=== PATIENT | male | born 1965 | race Caucasian/White ===

== ENCOUNTER → 2023-07-21 08:44 | Outpatient (REF) | payer BC, SELFPAY | LOC: HWRAD 08:44 | PROVIDERS: ATTENDING PHYSICIAN Nurse Practitioner Adult Health; FAMILY PHYSICIAN Family Medicine | DX: R91.8 Other nonspecific abnormal finding of lung field (principal) | CPT/HCPCS: 71250 ==

== ENCOUNTER → 2024-07-24 08:10 | Outpatient (REF) | payer BC, SELFPAY | LOC: HWRAD 08:10 | PROVIDERS: ATTENDING PHYSICIAN Internal Medicine Critical Care Medicine; FAMILY PHYSICIAN Family Medicine | DX: F17.210 Nicotine dependence, cigarettes, uncomplicated (principal) | CPT/HCPCS: 71271 ==

== ENCOUNTER 2025-05-30 18:18 | Emergency (ER) | payer BC, SELFPAY ==
[2025-05-30 18:20] VITALS: BP 133/81
[2025-05-30 18:47] LABS: INR 1.05; PT 13.5 Sec (11.4-14.6)
[2025-05-30 18:48] LABS: APTT 28.3 Sec (23.4-35.0); Hematocrit 46.4 % (39.0-52.0); Hemoglobin 15.4 g/dL (13.0-18.0); Mean Corp Hgb Conc. 33.2 g/dL (33.0-37.0); Mean Corpuscular Volume 92.4 fL (80.0-94.0); Platelet Count 233 10^3/uL (130-400); Red Cell Dist. Width 13.9 % (11.5-14.5)
[2025-05-30 18:51] LABS: ALT (SGPT) 35 U/L (0-50); AST (SGOT) 30 U/L (17-59); Albumin 4.0 g/dl (3.5-5.0); Alkaline Phosphatase 105 U/L (38-126); Blood Urea Nitrogen 15 mg/dl (9-20); Calcium 8.8 mg/dl (8.4-10.2); Carbon Dioxide 20 mmol/L (22-30); Chloride 103 mmol/L (98-107); Glucose 151 mg/dl (70-99); Potassium 4.5 mmol/L (3.5-5.1); Sodium 132 mmol/L (135-145); Total Protein 7.3 g/dl (6.3-8.2); eGFR > 60.00
[2025-05-30 19:57] LABS: Absolute Neutrophils -Man Diff 5.4 10^3/uL (1.4-6.5)
[2025-05-30 19:58] LABS: Normal RBC Morphology Yes; Platelets Checked Yes; Total Cells Counted 100
--- NOTE | 2025-05-30 20:06 | ED.GENMED ---
History of Present Illness
General
Chief Complaint: Nose Bleed
Time Seen by Provider: 05/30/25 20:06
History of Present Illness
History of Present Illness:
FOCUSED PAST MEDICAL HISTORY
- Asthma, COPD, anxiety
REVIEW OF OLD RECORDS
- I reviewed records, the patient was admitted here with diverticulitis in 2022
Note:
CHIEF COMPLAINT(S)
Recurrent epistaxis (nosebleeds) for the past three days.
HISTORY OF PRESENT ILLNESS
The patient is a 59-year-old male with recurrent episodes of epistaxis over the last three days. The patient reports using Continuous Positive Airway Pressure therapy (CPAP) with a humidifier at home. He denies any chronic oxygen use during the day.
The patient currently takes Clopidogrel (Plavix) and Aspirin. He noted an episode of flu-like symptoms recently that tested negative for influenza. The episodes of nosebleeds occur predominantly at night and have happened multiple times in a single
night, sometimes resembling clots, which he describes as 'like delivering a baby.' The patient reports saline spray is used at home, starting after the first two days of symptoms.
During the clinical visit, treatment involved the application of epinephrine to the nostril to constrict blood vessels and potentially stop the bleeding. Its noted that the bleeding seemed to be from the left anterior nasal septum, and a silver
nitrate cautery stick was used to cauterize fresh-appearing blood vessels. The patient was instructed to apply pressure to the nose from the outside for additional compression, particularly on the proximal aspect of the nasal septum.
CHRONIC MEDICAL CONDITIONS SIGNIFICANTLY AFFECTING CARE
The patient is on Clopidogrel (Plavix) and Aspirin, indicating a history of cardiovascular conditions, possibly prior strokes or cardiovascular risk, significantly impacting his current episodes of epistaxis.
PHYSICAL EXAM
General: Alert, no acute distress.
Skin: Warm, dry.
Head: Normocephalic, atraumatic.
Neck: Supple, trachea midline.
Eyes, Ears, Nose, Mouth, and Throat: Oral mucosa moist. Fresh bleeding noted from the left anterior nasal septum.
Cardiovascular: Normal peripheral perfusion, no edema.
Respiratory: Respirations are non-labored.
Gastrointestinal: Abdomen nondistended.
Back: Normal range of motion, normal alignment.
Musculoskeletal: Normal range of motion, normal strength.
Neurological: Alert and oriented to person, place, time, and situation, no focal neurological deficit observed.
Psychiatric: Cooperative, appropriate mood & affect.
PROBLEM LIST
Acute:
- Recurrent epistaxis.
Chronic:
- Possible cardiovascular condition indicated by the use of Clopidogrel (Plavix) and Aspirin.
PLAN
1. Applied epinephrine to the nasal cavity to constrict blood vessels and potentially halt the bleeding.
2. Cauterized the fresh-appearing vessel in the left anterior nasal septum with a silver nitrate stick.
3. Advised the patient to apply external pressure for nasal compression at anterosuperior nasal septum.
4. Will monitor after a brief period to reassess the situation and ensure hemostasis.
DIFFERENTIAL DIAGNOSIS
The Differential Diagnosis includes, in no particular order and is not limited to:
1. Nasal trauma
2. Hypertension
3. Coagulopathy
4. Nasal dryness or irritation
5. Nasal polyps
6. Septal deviation
7. Environmental factors causing irritation
8. Inflammatory conditions such as vasculitis
9. Underlying neoplasia
10. Hereditary hemorrhagic telangiectasia (HHT)
SUMMARY OF ENCOUNTER
The patient, a 59-year-old male, was evaluated in the emergency department for recurrent epistaxis over the past three days. The patient has a history of using continuous positive airway pressure (CPAP) therapy with a humidifier, without daytime
oxygen use. The bleeding primarily occurs at night and has been described as significant, with some episodes resembling clots. During the encounter, epinephrine was applied to the left nostril to constrict blood vessels. On initial assessment, the
bleeding appeared to be towards the back of the left nostril. Reassessment revealed significant bleeding and a moderate-sized clot, which was removed. The patients bleeding appeared to subside without the need for nasal packing immediately, though
this remained a consideration if the bleeding were to resume significantly.
ASSESSMENT
Recurrent epistaxis, likely exacerbated by the patients anticoagulant medications, nasal dryness or irritation related to CPAP therapy, or potential underlying vascular abnormalities.
PLAN
1. Continue monitoring for additional bleeding.
2. Consider nasal packing if severe bleeding resumes.
3. Advise continued use of saline nasal spray at home.
4. Re-evaluation to check for bleeding recurrence or packing necessity.
REASSESSMENT
On reassessment, there was more significant bleeding at the left nostril and a moderate-sized clot was removed. The patient currently has no active bleeding following the removal of epinephrine-soaked cotton.
FOLLOW-UP INSTRUCTIONS
Please follow up with primary care for further evaluation and management of recurrent epistaxis and potential modification of anticoagulation therapy if necessary.
MEDICATION RECONCILIATION
1. Epinephrine was applied to the nasal cavity in the emergency department for vasoconstriction.
MEDICAL DECISION MAKING
-Complexity of Data Reviewed: Chronic conditions affecting care include possible cardiovascular condition indicated by the use of Clopidogrel (Plavix) and aspirin. Differential diagnosis considers nasal trauma, hypertension, coagulopathy, nasal
dryness or irritation, nasal polyps, septal deviation, environmental factors causing irritation, inflammatory conditions such as vasculitis, underlying neoplasia, and hereditary hemorrhagic telangiectasia (HHT).
-Data:
Category 1: The decision to potentially apply nasal packing was considered if active bleeding persisted, which was not chosen as bleeding appeared to have subsided after epinephrine application.
Category 2: No imaging or laboratory data was independently reviewed in this encounter.
-Risk:
Prescription drug management involves the use of Clopidogrel and aspirin, which increases bleeding risk. Consideration of admission/observation was discussed but not acted upon, as outpatient management was deemed safe with reassurance from current
blood control and patients condition.
DIAGNOSIS
1. Recurrent epistaxis (ICD-10: R04.0)
LABS
- CBC unremarkable with mild leukocytopenia, sodium 132, glucose 151
UPDATE
- Patient had bleeding after epinephrine soaked cotton and silver nitrate cauterization
- Additional moderate size clots removed
- Observe for a longer period of time in the ED and there has been no further bleeding
- To follow-up with Dr. Whelan
- Of note, patient is on aspirin and Plavix
Past History
Past History
ED Past Medical History: Arrthythmia (PVC's), Asthma, GERD, HTN, Hypercholesterolemia, NIDDM and Other (PAD, DIVERTICULITIS, gout)
ED Past Surgical History: Appendectomy and Other (Stents both legs)
Social History
Tobacco: Smoker
Alcohol: Occasional
Drug: None
Personal:
Living: with family
Employment: Employed
Family History
Family History: Other (Noncontributory)
Phy Exam
Physical Exam
Physical Exam:
See HPI
Course
Orders/Labs/Results
Orders:
Orders
05/30/25 18:27
Complete Blood Count/With Diff Urgent
Comprehensive Metabolic Panel Urgent
Manual Differential Urgent
PT/INR [Prothrombin Time] Urgent
Is patient on Coumadin/Warfarin?: No
Comment: [email or web address]
PTT Urgent
Abnormal Lab Results
05/30/25
18:27
Lymphocytes (Manual) 15 L %
(20-51)
Monocytes (Manual) 10 H %
(2-9)
Sodium 132 L mmol/L
(135-145)
Carbon Dioxide 20 L mmol/L
(22-30)
Glucose 151 H mg/dl
(70-99)
05/30/25 18:27
05/30/25 18:27
Vital Signs
Initial and Last Documented VS:
Initial Vital Signs
Temp Pulse Resp BP Pulse Ox
36.8 C 79 18 133/81 96
05/30/25 18:20 05/30/25 18:20 05/30/25 18:20 05/30/25 18:20 05/30/25 18:20
Last Documented Vital Signs
Temp Pulse Resp BP Pulse Ox
36.8 C 69 18 119/82 96
05/30/25 18:20 05/30/25 22:07 05/30/25 22:07 05/30/25 22:07 05/30/25 22:07
Procedures
Nosebleed
Drug treatment: Epinephrine
Treatment: Silver nitrate cautery
Additional information:
Bled initially after initial treatment but then after additional epinephrine and pressure significantly improved
*Pulse Oximetry
SaO2: 96
Oxygen Mode of Delivery: Room air
Patient hypoxic: no
*Critical Care Note
Total Time (30-74mins, 75-104mins- exclusive of procedures): Not Applicable
ED Attending Note
-
Portions of this chart may have been created with voice recognition software.� Occasional wrong word or��sound alike� substitutions may have occurred due to the inherent limitations of voice recognition software.
Discharge Plan
Departure
Patient Disposition: Home (Routine Discharge)
Date of Disposition: 05/30/25
Time of Disposition: 21:53
Patient with high blood pressure during this ER visit?: Yes
Discharge Problem:
Acute anterior epistaxis
Instructions: Nosebleeds (DC), BLOOD PRESSURE
Prescriptions:
No Action
aspirin 81 MG tablet,delayed release (DR/EC)
81 mg PO HS
cyanocobalamin (vitamin B-12) 1,000 MCG tablet
3,000 mcg PO DAILY
omega-3 acid ethyl esters [Lovaza] 1 GM capsule
2 gm PO BID
alprazolam 0.25 MG tablet
0.25 mg PO BIDPRN PRN (Reason: anxiety)
Patient Comments:
04/11/2023: LAST FILLED 10/08/22, 60 TABS FOR 30 DAYS FROM [facility]
ascorbic acid (vitamin C) [Vitamin C] 500 MG tablet
1,000 mg PO DAILY
albuterol sulfate 1 PUFF HFA aerosol inhaler
2 puff inhalation R Q4HPRN PRN (Reason: shortness of breath)
clopidogrel 75 MG tablet
75 mg PO HS
cholecalciferol (vitamin D3) [Vitamin D3] 50 mcg (2,000 unit) Tablet
50 mcg PO DAILY Qty: 0
olmesartan [Benicar] 40 mg Tablet
40 mg PO HS
fexofenadine 180 mg Tablet
180 mg PO HS
rosuvastatin 10 mg tablet
10 mg PO HS
Farxiga 10 mg tablet
10 mg PO HS
Trelegy Ellipta 100-62.5-25 mcg blister with device
1 inh INHALATION R HS
famotidine 20 mg Tablet
20 mg PO BID Qty: 60 1RF
levofloxacin 750 mg tablet
750 mg PO Q24H Qty: 8 0RF
metronidazole 500 mg tablet
500 mg PO Q8H Qty: 25 0RF
Referrals:
Nithya Reyes PA-C [Family Provider, Family Practice]
Robby Whelan MD [Active, Otology]
Activity Restrictions/Additional Instructions:
I placed epinephrine soaked cotton to constrict the blood vessels twice. I also cauterized with a silver nitrate stick. Since this has been ongoing over the last several days, I recommend you follow-up with ENT such as Dr. Whelan. Return if
worse or other concerns.
Interventions
Interventions:
*Risk Screen - Suicide Last Done: 05/30/25 18:23
*General Assessment Last Done: 05/30/25 20:27
*Neglect/Abuse Screening Last Done: 05/30/25 18:23
*ED COVID-19 Vaccine History Last Done: 05/30/25 20:27
*ED Influenza Vaccine History Last Done: 05/30/25 20:27
[facility] Risk Assessment Tool Last Done: 05/30/25 22:09
*Nursing Disposition Last Done: 05/30/25 22:07
ED-EENT Assessment Last Done: 05/30/25 20:27
Discharge Date and Time
Discharge Date/Time: 05/30/25 22:08
Print Language: TELUGU
[2025-05-30 20:27] VITALS: BMI 33.2
[2025-05-30 22:07] VITALS: BP 119/82
== END 2025-05-30 22:08 | disposition home or self-care (01) ==
LOC: EMR 18:18
PROVIDERS: Emergency Medicine; EMERGENCY PHYSICIAN Emergency Medicine; FAMILY PHYSICIAN Physician Assistant
DX: R04.0 Epistaxis (principal); E11.9 Type 2 diabetes mellitus without complications; E78.00 Pure hypercholesterolemia, unspecified; F17.200 Nicotine dependence, unspecified, uncomplicated; I10 Essential (primary) hypertension; J44.89 Other specified chronic obstructive pulmonary disease; I25.10 Atherosclerotic heart disease of native coronary artery without angina pectoris; Z79.02 Long term (current) use of antithrombotics/antiplatelets
CPT/HCPCS: 30901; 99283; 80053; 85025; 85610; 85730

== ENCOUNTER 2025-06-09 19:36 | Emergency (ER) | payer BC, SELFPAY ==
[2025-06-09 19:42] VITALS: BP 131/76
[2025-06-09 19:56] VITALS: BP 126/73
[2025-06-09 19:59] VITALS: BMI 33.9
[2025-06-09 20:00] VITALS: BP 143/76
--- NOTE | 2025-06-09 20:02 | ED.GENMED ---
History of Present Illness
General
Chief Complaint: Chest Pain
Time Seen by Provider: 06/09/25 19:56
Nursing documentation reviewed up to this point in time: agreed with
History of Present Illness
History of Present Illness:
59-year-old male presents the ER for evaluation of central chest burning which has been present since it awakened him at 3:00 this morning. Patient thought that he might be heartburn given he has significant heartburn symptoms daily. He took
omeprazole and tried to get back to sleep. Took another 1 at 1130. He states that the pain has been present all day, vacillating between a 4 and an 8 out of 10. He denies any associated shortness of breath. He denies any cough or cold symptoms.
He does see a nutrition services associate regularly due to history of arrhythmia many years ago-he denies any abnormal stress test or prior ACS. He denies any paresthesias to arms or legs. No syncope or trauma.
He does have a significant prior medical history including ongoing tobacco use, hypertension, hyperlipidemia, type 2 diabetes, COPD and GERD.
Past History
Past History
ED Past Medical History: Arrthythmia (PVC's), Asthma, GERD, HTN, Hypercholesterolemia, NIDDM and Other (PAD, DIVERTICULITIS, gout)
ED Past Surgical History: Appendectomy and Other (Stents both legs)
Social History
Tobacco: Smoker
Alcohol: Occasional
Drug: None
Personal:
Living: with family
Employment: Employed
Family History
Family History: Other (Noncontributory)
Review of Systems
Review of Systems
Allergies reviewed?: Yes
Phy Exam
Physical Exam
Physical Exam:
Patient is awake, alert, appears in no acute distress, head is NCAT, PERRL, EOMI mucous membranes moist, conjunctiva pink, heart regular rate and rhythm without murmurs or ectopy, lungs are clear to auscultation without wheezes rales or rhonchi, no
JVD, abdomen is soft and nontender on palpation, extremities without edema, GCS is 15, 2+ radial pulses symmetric, 2+ DP pulses present symmetric
Scores
Heart Score for Chest Pain Patients
STEMI patient?: No
History: Slightly or Non-Suspicious
ECG: Nonspecific Repolarization
Age: >45 - <65 years
Risk Factors: >/= 3 Risk Factors or History of CAD
Troponin: </= Normal Limit
Heart Score for Chest Pain Patients: 4
Heart Score Risk: 20.3% MACE over next 6 weeks
Course
Orders/Labs/Results
Orders:
Orders
06/09/25 19:37
Electrocardiogram (*1) Urgent
Reason for Study: Other
Other Reason for Exam: Respiratory Distress
Cardiac Monitoring- Treatment ONCE
EKG- Treatment ONCE
IV Insert/Care/Rem.- Treatment PRN
CR Chest - 2 Views Urgent
Comment:
Reason For Exam: respiratory distress
O2 Therapy [RESP] Urgent
Titrate/Wean O2 to maintain O2 sat greater than (%): 93
Special Instructions: TO MAINTAIN CONTINUOUS O2 SATS >/= 93%
Pulse Ox/cont/shift [RESP] Urgent
Quantity: 1
Special Instructions: continuous pulse ox
06/09/25 19:58
Complete Blood Count/With Diff Urgent
Comprehensive Metabolic Panel Urgent
NT-proBNP Urgent
Troponin I Urgent
06/09/25 20:02
Electrocardiogram (*1) Urgent
Reason for Study: Chest Pain
EKG- Treatment ONCE
Nitroglycerin Sublingual [Nitrostat (Sublingual)] 0.4 mg SL NOW STA
06/09/25 20:03
Nitroglycerin Sublingual [Nitrostat (Sublingual)] 0.4 mg .ROUTE .STK-MED ONE
06/09/25 20:07
Aspirin 325 mg PO NOW STA
06/09/25 21:25
Mag Hydrox/Al Hydrox/Simeth [Maalox] 30 ml Phenobarb/Hyoscy/Atropine/Scop [] 10 ml PO NOW
06/09/25 21:37
Mag Hydrox/Al Hydrox/Simeth [Maalox] 30 ml .ROUTE .STK-MED ONE
Phenobarb/Hyoscy/Atropine/Scop [] 10 ml .ROUTE .STK-MED ONE
Abnormal Lab Results
06/09/25
19:58
MCH 31.2 H pg
(27.0-31.0)
Abs Immat Gran (auto) 0.1 H 10^3/uL
(0-0.05)
Absolute Neuts (auto) 7.1 H 10^3/uL
(1.4-6.5)
Immature Gran % 0.8 H %
(0-0.5)
Glucose 126 H mg/dl
(70-99)
Total Protein 8.5 H g/dl
(6.3-8.2)
06/09/25 19:58
06/09/25 19:58
CBC within normal limits. Chemistries normal. Troponin negative.
Vital Signs
Initial and Last Documented VS:
Initial Vital Signs
Temp Pulse Resp BP Pulse Ox
98.3 F 85 18 131/76 96
06/09/25 19:42 06/09/25 19:42 06/09/25 19:42 06/09/25 19:42 06/09/25 19:42
Last Documented Vital Signs
Temp Pulse Resp BP Pulse Ox
98.3 F 65 19 114/59 94
06/09/25 19:42 06/09/25 21:30 06/09/25 21:30 06/09/25 21:00 06/09/25 21:30
MDM/Problems Addressed
Differential Diagnosis Includes:
Differential diagnosis to consider but not limited to ACS, GERD, esophageal spasm, pneumonia, pneumothorax along with other etiologies considered
Chronic conditions affecting care:
As per HPI
*Radiology
Radiology exam reviewed: preliminary read by ED provider (I independently viewed and interpreted two-view chest x-ray showing subsegmental atelectasis bilateral lower lung conley, no gross infiltrate, no change in cardiac silhouette compared to
prior from 01/20/2019)
*Pulse Oximetry
SaO2: 96
Oxygen Mode of Delivery: Room air
Patient hypoxic: no
*EKG
Interpreted by ED Provider?: Yes (I independently viewed and interpreted twelve-lead EKG showing normal sinus rhythm, rate 87, normal axis, normal intervals, nonspecific T wave inversion in the lateral leads which is new compared to prior from
04/13/2023, no ST elevation seen)
*Construction Estimator Interpretation
Rate: normal (I independently viewed and interpreted rhythm strip showing normal sinus rhythm, no ectopy)
*Critical Care Note
Total Time (30-74mins, 75-104mins- exclusive of procedures): Not Applicable
Data Reviewed
Review of Other/Old Records Reveals: Discharge Summary (I reviewed discharge summary from 04/13/2023, Dr. Vizcarra. Patient was admitted for treatment of acute sigmoid diverticulitis with intramural abscess. I reviewed discharge medications along
with medical history and discharge note)
Update Note
Update Note:
Will give sublingual nitroglycerin as patient is still complaining of significant chest pain. Will then repeat EKG. Patient present bedside agree with plan for workup in the ER. Awaiting results.
2014: No change in EKG after sublingual nitro. Pain is now a 2 out of 10. Will continue to monitor
Once all test results available, I discussed with patient and very reassuring workup here today. Patient was given green grabber with complete symptomatic resolution. Patient mentions that he is currently on doxycycline-we discussed that this
may be what is exacerbating his esophagitis. I discussed with him use of Maalox and benefit of follow-up with his acid tank cleaner for reevaluation and further care. Troponin was not repeated as symptoms have been going on for more than 12 hours
and initial test was negative-low suspicion for ACS as etiology of symptoms. I reviewed full discharge plan with patient and present bedside. They feel comfortable and had no questions prior to leaving the department.
ED Attending Note
-
Portions of this chart may have been created with voice recognition software.� Occasional wrong word or��sound alike� substitutions may have occurred due to the inherent limitations of voice recognition software.
Discharge Plan
Departure
Patient Disposition: Home (Routine Discharge)
Date of Disposition: 06/09/25
Time of Disposition: 22:10
Patient with high blood pressure during this ER visit?: No
Discharge Problem:
Chest pain, Pill esophagitis
Instructions: Acid Reflux and GERD in Adults (DC), Chest Pain NON-[facility] Director Of Broadcast Follow Up
Prescriptions:
No Action
aspirin 81 MG tablet,delayed release (DR/EC)
81 mg PO HS
cyanocobalamin (vitamin B-12) 1,000 MCG tablet
3,000 mcg PO DAILY
omega-3 acid ethyl esters [Lovaza] 1 GM capsule
2 gm PO BID
alprazolam 0.25 MG tablet
0.25 mg PO BIDPRN PRN (Reason: anxiety)
Patient Comments:
04/11/2023: LAST FILLED 10/08/22, 60 TABS FOR 30 DAYS FROM [facility]
ascorbic acid (vitamin C) [Vitamin C] 500 MG tablet
1,000 mg PO DAILY
albuterol sulfate 1 PUFF HFA aerosol inhaler
2 puff inhalation R Q4HPRN PRN (Reason: shortness of breath)
clopidogrel 75 MG tablet
75 mg PO HS
cholecalciferol (vitamin D3) [Vitamin D3] 50 mcg (2,000 unit) Tablet
50 mcg PO DAILY Qty: 0
olmesartan [Benicar] 40 mg Tablet
40 mg PO HS
fexofenadine 180 mg Tablet
180 mg PO HS
rosuvastatin 10 mg tablet
10 mg PO HS
Farxiga 10 mg tablet
10 mg PO HS
Trelegy Ellipta 100-62.5-25 mcg blister with device
1 inh INHALATION R HS
famotidine 20 mg Tablet
20 mg PO BID Qty: 60 1RF
levofloxacin 750 mg tablet
750 mg PO Q24H Qty: 8 0RF
metronidazole 500 mg tablet
500 mg PO Q8H Qty: 25 0RF
Referrals:
Nithya Reyes PA-C [Family Provider, Family Practice]
Activity Restrictions/Additional Instructions:
Continue using your omeprazole daily. You may also add Maalox for additional symptomatic relief for the next 48 hours. If you are still having symptoms on Wednesday, please contact your acid tank cleaner to schedule appointment for reevaluation and
further care.
Please also contact your nutrition services associate to schedule appointment for reevaluation. Return to the ER for any concerns
Interventions
Interventions:
*General Assessment Last Done: 06/09/25 19:59
*Neglect/Abuse Screening Last Done: 06/09/25 19:42
*ED COVID-19 Vaccine History Last Done: 06/09/25 19:59
*ED Influenza Vaccine History Last Done: 06/09/25 19:59
[facility] Fall Risk Assessment Tool Last Done: 06/09/25 19:59
*Risk Screen - Suicide (C-SSRS) Last Done: 06/09/25 19:42
*Nursing Disposition Last Done: 06/09/25 22:26
ED- Cardiac Assessment Last Done: 06/09/25 19:59
Discharge Date and Time
Discharge Date/Time: 06/09/25 22:26
Print Language: YEMENI
[2025-06-09] MEDS: NITROSTAT (SUBLINGUAL) 0.4 MG SL (20:04)
[2025-06-09 20:06] LABS: Hematocrit 51.0 % (39.0-52.0); Hemoglobin 17.0 g/dL (13.0-18.0); Mean Corp Hgb Conc. 33.3 g/dL (33.0-37.0); Mean Corpuscular Volume 93.6 fL (80.0-94.0); Nucleated Red Blood Cells % 0 % (-); Platelet Count 357 10^3/uL (130-400); Red Cell Dist. Width 14.3 % (11.5-14.5)
[2025-06-09 20:07] VITALS: BP 119/75
[2025-06-09] MEDS: ASPIRIN 325 MG PO (20:18)
[2025-06-09 20:30] LABS: ALT (SGPT) 47 U/L (0-50); AST (SGOT) 42 U/L (17-59); Albumin 4.7 g/dl (3.5-5.0); Alkaline Phosphatase 99 U/L (38-126); Blood Urea Nitrogen 13 mg/dl (9-20); Calcium 9.6 mg/dl (8.4-10.2); Carbon Dioxide 23 mmol/L (22-30); Chloride 104 mmol/L (98-107); Estimated Creatinine Clearance 99 ml/min; Glucose 126 mg/dl (70-99); Potassium 4.3 mmol/L (3.5-5.1); Sodium 137 mmol/L (135-145); eGFR > 60.00
[2025-06-09 20:38] LABS: Total Protein 8.5 g/dl (6.3-8.2)
[2025-06-09 20:41] LABS: Troponin I < 0.012 ng/ml
[2025-06-09 21:00] VITALS: BP 114/59
[2025-06-09] MEDS: MAALOX 40 PO (21:38)
--- NOTE | 2025-06-09 21:41 | EDRN ---
patient updated on labs and provided with more medication, patient resting comfortably at this time.
== END 2025-06-09 22:26 | disposition home or self-care (01) ==
LOC: EMR 19:36
PROVIDERS: Emergency Medicine; EMERGENCY PHYSICIAN Emergency Medicine; FAMILY PHYSICIAN Physician Assistant
DX: K20.80 Other esophagitis without bleeding (principal); E11.51 Type 2 diabetes mellitus with diabetic peripheral angiopathy without gangrene; I10 Essential (primary) hypertension; E78.00 Pure hypercholesterolemia, unspecified; J44.89 Other specified chronic obstructive pulmonary disease; K21.9 Gastro-esophageal reflux disease without esophagitis; M10.9 Gout, unspecified; F17.200 Nicotine dependence, unspecified, uncomplicated; Z79.82 Long term (current) use of aspirin; Z79.84 Long term (current) use of oral hypoglycemic drugs
CPT/HCPCS: 99284; 71046; 80053; 83880; 84484; 85025; 93005